=== PATIENT | male | born 1995 | race Caucasian/White ===

== ENCOUNTER 2017-01-05 21:23 | Emergency (ER) | payer BC, OTHER ==
[~2017-01-05] VITALS: Ht 182.9 cm; Wt 73.3 kg
[2017-01-05 21:25] VITALS: TEMP 36.7; Ht 182.9 cm; Wt 73.3 kg
[2017-01-05] MEDS ORDERED: FEXO-101 (21:37)
--- NOTE | 2017-01-05 21:39 | EMERGENCY ROOM VISIT NOTE ---
History First contact with patient: 21:28 Chief Complaint: HEAD INJURY (MINOR) Stated Complaint: HEADACHE POSSBILE CONCUSSION History of Present Illness The patient is a 21 year old male who presents to the Emergency Room with complaints of head injury. The patient states that he was playing backyard football a few hours ago and at approximately 7 PM he was going backwards and tripped and fell back striking his head on the ground. There was no loss of consciousness. The patient denies any short-term memory loss. The patient denies any dizziness or visual changes. The patient states he initially had a mild headache but now and it almost completely resolved. The patient denies any neck pain or back pain. The patient denies any prior head injuries. Patient denies any nausea or vomiting. He does admit that he came home and ate after the injury occurred. Review of Systems 10 system review was performed and was negative unless stated otherwise history of present illness. Past Medical/Surgical History Medical Problems: (1) Idiopathic Scoliosis (2) Open Wound Of Forehead Family History Heart disease Hypertension Kidney stones Social History Smoking Status: Never Smoker Drug Use: none Marital Status: single Housing Status: lives with family Occupation Status: employed Current/Historical Medications Miscellaneous Medications None (Patient States No Home Meds) Allergies Coded Allergies: No Known Allergies (Unverified Allergy, Mild, 12/31/06) Physical Exam Vital Signs Date Time Temp Pulse Resp B/P (MAP) Pulse Ox O2 Delivery O2 Flow Rate FiO2 01/05/17 21:25 36.7 86 18 117/66 97 Physical Exam GENERAL: 21-year-old male appears in no acute distress. MENTAL Status: Alert and oriented 3. HEAD: Atraumatic, nontender to palpation. EYES: PERRLA. EOMs intact. EARS: Canals clear. TMs without hemotympanum NECK: Supple, no lymphadenopathy noted. No carotid bruits noted. LUNGS: Clear auscultation without wheezes rales or rhonchi. CARDIAC: Regular rate and rhythm without murmur. Pulses is full and equal throughout. CERVICAL SPINE: No gross bony deformity noted. Nontender to palpation over the spinous processes in the paravertebral region. Full range of motion. NEURO:Cranial nerves two through 12 intact. Cerebellar function intact with [id number]. Fine motor intact with alternating finger motions. Medical Decision & Procedures ED Course The patient was evaluated. The patient did not have any neurologic deficits or any physical findings or complaints consistent with concussion or intracranial bleed. Therefore a CT of the head was not performed at this time. Medical Decision Differential diagnosis include intracranial bleed, head contusion, concussion. Impression Primary Impression: Head contusion Departure Information Dispostion Home / Self-Care Condition GOOD Referrals Foreign [facility] M.D. (PCP) Forms HOME CARE DOCUMENTATION FORM, IMPORTANT VISIT INFORMATION Patient Instructions ED Head Injury Closed, [facility] Additional Instructions Follow head injury handout instructions. Any problems return to ER. If you experience any severe headache, visual changes, uncontrolled nausea vomiting return immediately. Tylenol as needed for headache. Problem Qualifiers Primary Impression: Head contusion Encounter type: initial encounter Contusion of head detail: scalp Qualified Codes: S00.03XA - Contusion of scalp, initial encounter
[2017-01-05 22:06] VITALS: BP 122/72; PULSE 70; O2SAT 98
== END 2017-01-05 22:07 | disposition home or self-care (01) ==
LOC: C.EDB 21:24 → C.EDD 22:07
DX: S00.03XA Contusion of scalp, initial encounter (principal); W19.XXXA Unspecified fall, initial encounter; M41.20 Other idiopathic scoliosis, site unspecified; Z82.49 Family history of ischemic heart disease and other diseases of the circulatory system